=== PATIENT | female | born 1965 | race African-American/Black ===

== ENCOUNTER 2018-06-03 12:24 | Emergency (ER) | payer OTHER ==
[~2018-06-03] VITALS: Ht 170.2 cm; Wt 83.0 kg
[2018-06-03 14:58] VITALS: BP 100/69
== END 2018-06-03 16:43 | disposition left against medical advice (07) ==
LOC: ER 12:24
DX: R07.89 Other chest pain (principal); Z53.21 Procedure and treatment not carried out due to patient leaving prior to being seen by health care provider
CPT/HCPCS: 93005